=== PATIENT | male | born 1970 | race Hispanic/Latino ===

== ENCOUNTER 2016-10-12 10:48 | Emergency (ER) | payer OTHER, SELFPAY ==
[2016-10-12 11:28] LABS: #Eosinphils 0.1 thou/uL (0.0-0.7); #Monocytes 0.4 thou/uL (0.11-0.59); #Neutrophils 3.2 thou/uL (1.40-6.50); %Basophils 0.7 % (0.0-1.0); %Eosinophils 1.9 % (0.0-10.0); %Monocytes 6.7 % (0.0-10.0); Hematocrit 48.8 % (42.0-52.0); Mean Platelet Volume 6.1 fL (7.4-10.4); Red Blood Cell (RBC) Count 5.67 mill/uL (4.70-6.10); White Blood Cell (WBC) Count 5.7 thou/uL (4.8-10.8)
[2016-10-12 11:30] LABS: PTT 28.2 SEC (22.9-36.1)
[2016-10-12 11:31] LABS: Prothrombin Time 14.7 SEC (12.0-14.7)
[2016-10-12] MEDS ORDERED: Metoprolol Tartrate 5 MG/5 ML VIAL ONE (11:31)
[2016-10-12 11:37] LABS: ALT (SGPT) 49 U/L (0-55); AST (SGOT) 28 U/L (5-34); Alkaline Phosphatase 44 U/L (40-150); Anion Gap 14 mmol/L (10-20); BUN (Urea Nitrogen) 14 mg/dL (8.9-20.6); Bilirubin, Total 1.1 mg/dL (0.2-1.2); Calc. Creatinine Clearance 0 mL/min (70-130); Calcium 9.3 mg/dL (7.8-10.44); Carbon Dioxide 22 mmol/L (22-29); Chloride 108 mmol/L (98-107); Estimated GFR-MDRD Greater than 90; Globulin 3.2 g/dL (2.4-3.5); Lipase 25 U/L (8-78); Protein, Total 7.6 g/dL (6.0-8.3)
[2016-10-12 11:38] LABS: Troponin I 0.015 ng/mL (< 0.028)
--- NOTE | 2016-10-12 12:22 | ERRECORD ---
[facility] EMERGENCY RECORD HPI CHEST PAIN (11:17 DHAM) CHIEF COMPLAINT: Patient presents for evaluation of chest pain, that was present but has now resolved. HISTORIAN: History provided by patient, History provided by patient's spouse, . LOCATION: Symptoms are localized, most severe in substernal area. QUALITY: Pain is dull in nature, described as burning. SEVERITY: Current severity of pain rated as 0/10. TIME COURSE: Gradual onset of symptoms, for the last one year off and on. worse the last 2 weeks., Symptoms have resolved, are intermittent. ASSOCIATED WITH: No associated chills, No associated cough, No associated diaphoresis, No associated fever, No associated nausea, No associated palpitations, No associated shortness of breath, No associated trauma, No associated upper respiratory infection, No associated vomiting, saw pcp yesterday for "worse indigestion" and was noted to have elevated bp with diastolic around 100. He was switched from his intermittent Prilosec to daily protonix and told to monitor his bp and recheck next month. He had a couple of episodes this morning and has seemed to hurt worse to push on the parasternal area so he came in for a check. also notes increased eructation last few weeks. EXACERBATED BY: Patient's condition exacerbated by palpation of chest, Patient's condition exacerbated by worse to eat, lay supine or drink soda. RELIEVED BY: Patient's condition relieved by upright position. RISK FACTORS: Coronary artery disease risk factors, include hypertension, Thoracic aortic dissection risk factors, include hypertension, Pulmonary embolism risk factors, include morbid obesity. HEART SCORE: Patients history is Slightly Suspicious (0), Patients ECG is normal (0), Patients age is greater than 45 and less than 65 (1), Patient has 1 or 2 risk factors (1), Patients Troponin is equal to or less than 1 times the normal limit (0), Total 2. WELLS CRITERIA FOR PE: No clinical signs and symptoms of a DVT (0), Patient does not have, or is likely to not have, a primary diagnosis of PE (0), Patient's heart rate is less than 100 (0), Patient has no history of immobilization within 3 days, nor any surgical history within the past 4 weeks (0), Patient has not had an objectively diagnosed PE or DVT previously (0), Patient does not have hemoptysis (0), Patient has not had treatment for malignancy within the last 6 months, nor palliative (0), Total 0. ROS CONSTITUTIONAL: Negative constitutional review of systems, Historian denies chills, denies fatigue, denies fever. (11:24 DHAM) EYES: Negative eye review of systems, Historian denies eye pain, denies eye redness. (11:24 DHAM) &a-1R&a+25V*p+0X*[id number]*c152B*c15G*c2P*p-0X&a-25V&a+1RName: Rakesh Balderas : M46 MedRec: [id number] AcctNum: [id number] Prepared: Kirit Oct 12, 2016 22:57 by Interface Page [address] [facility] EMERGENCY RECORD ENT: Negative ears, nose, throat review of systems. (11:24 DHAM) CARDIOVASCULAR: Historian reports chest pain, pleuritic, substernal, Historian denies diaphoresis, denies dyspnea on exertion, denies edema, denies exercise intolerance, denies syncope, denies palpitations. (11:24 DHAM) RESPIRATORY: Historian denies cough, denies shortness of breath, denies sputum. (11:24 DHAM) GI: Historian denies abdominal pain, denies diarrhea, denies nausea, denies vomiting. (11:24 DHAM) GENITOURINARY MALE: Historian denies dysuria, denies urinary frequency, denies urinary urgency. (11:24 DHAM) MUSCULOSKELETAL: Historian denies arthralgias, denies myalgias, denies neck pain. (11:24 DHAM) SKIN: Historian denies cellulitis, denies rash, denies skin lesions. (11:24 DHAM) NEUROLOGIC: Historian denies confusion, denies headache, denies paresthesias. (11:24 DHAM) HEMO/LYMPHATIC: Historian denies abnormal blood clotting, denies easy bruising. (11:25 DHAM) ALLERGIC/IMMUNOLOGIC: Historian denies frequent infections, denies hives. (11:25 DHAM) PSYCHIATRIC: Historian denies anxiety, denies depression. (11:24 DHAM) NOTES: All systems reviewed, negative except as described above. (11:24 DHAM) PAST MEDICAL HISTORY (11:06 RHIC) MEDICAL HISTORY: Flu vaccine not up to date, Tetanus immunization up to date, Past medical history includes gastrointestinal disease, gastroesophageal reflux disease. MALE SURGICAL HISTORY: Patient has no surgical history. PSYCHIATRIC HISTORY: No previous psychiatric history. SOCIAL HISTORY: Patient denies alcohol use, Patient denies drug use, Patient has no smoking history. KNOWN ALLERGIES No Known Allergies No Known Drug Allergy (Unconfirmed) CURRENT MEDICATIONS No recorded medications VITAL SIGNS VITAL SIGNS: BP: 143/104, Pulse: 70, Resp: 18, Pain: 0, O2 sat: 100, Time: 10/12/2016 11:05. (11:05 RHIC) BP: 126/89, Pulse: 93, Resp: 18, Pain: 0, O2 sat: 97 on Room Air, Time: 10/12/2016 11:34. (11:34 AHOO) Temp: 98.2 (Oral), Time: 10/12/2016 11:15. (11:15 AHOO) &a-1R&a+25V*p+0X*[id number]*c152B*c15G*c2P*p-0X&a-25V&a+1RName: Rakesh Balderas : M46 MedRec: [id number] AcctNum: [id number] Prepared: Sat Oct 12, 2016 22:57 by Interface Page [address] [facility] EMERGENCY RECORD PHYSICAL EXAM (11:39 DHAM) CONSTITUTIONAL: Vital signs reviewed, Patient afebrile, Pulse normal, Blood pressure elevated initially but quickly came down to almost normal., Respiratory rate normal, Patient appears non toxic, Patient appears pain free, Patient alert and oriented to person, place and time. HEAD: Head exam normal, Head exam included findings of head atraumatic. EYES: Eye exam included findings of eyelids normal to inspection, Pupils equally round and reactive to light, Extraocular muscles intact, Conjunctiva normal. ENT: Ear exam normal, external ear normal, tympanic membranes normal, no drainage, Nose exam normal, no nasal deformity, no nasal congestion or rhinorrhea, Pharynx exam normal, Uvula exam normal, Tonsil exam normal, teeth normal. NECK: Neck exam normal, Neck exam included findings of normal range of motion, Thyroid normal, no jugular venous distention, no cervical adenopathy. RESPIRATORY CHEST: Breath sounds clear, No wheezing, No rales, No rhonchi. mild parasternal tenderness to palpation left lower and right upper. chest wall does seem to recreate tenderness. CARDIOVASCULAR: Cardiovascular exam included findings of heart rate regular rate and rhythm, Heart sounds normal, Point of maximal impulse normal. ABDOMEN MALE: Abdominal exam included findings of abdomen nontender, Bowel sounds normal, Liver normal, Spleen normal, no distension, no mass, no peritoneal signs. UPPER EXTREMITY: Upper extremity exam normal, Radial pulse normal. LOWER EXTREMITY: Lower extremity exam normal, Lower extremity exam included findings of inspection normal, Range of motion normal. NEURO: Ava coma scale 15, Neuro exam findings include patient oriented to person, place and time, Speech normal, Gait normal, Cranial nerves intact. SKIN: Skin exam included findings of skin warm, dry, and normal in color, no rash. PSYCHIATRIC: Psychiatric exam included findings of patient oriented to person place and time, Normal affect, Judgment normal, Insight normal. EKG INTERPRETATION (11:04 DHAM) 12 LEAD EKG INTERPRETATION: 12 lead EKG interpreted by Emergency Department Physician at time of study, 12 lead EKG shows normal sinus rhythm, Rate (beats per minute): 69, with no ectopics, No previous EKG available for comparison, Conduction normal, ST segments normal, T waves normal, [place] normal, Clinical impression: Normal EKG. RADIOLOGYINTERPRETATION (11:49 DHAM) CHEST: Chest films negative, no infiltrates, no pneumothorax, no hemothorax, no masses, no cardiomegaly, no congestive heart failure, &a-1R&a+25V*p+0X*[id number]*c152B*c15G*c2P*p-0X&a-25V&a+1RName: Rakesh Balderas : M46 MedRec: [id number] AcctNum: [id number] Prepared: Kirit Oct 12, 2016 22:57 by Interface Page [address] [facility] EMERGENCY RECORD no effusion, no free air, mild cephalization noted but underpenetrated due to habitus. MEDICATION ADMINISTRATION SUMMARY Drug Name: Adult Low Dose Aspirin, Dose Ordered: 4 tab(s), Route: Oral, Status: Given, Time: 11:34 10/12/2016, Detailed record available in Medication Service section. DOCTOR NOTES (11:50 DHAM) TEXT: The pt's symptoms sound typical for reflux but also has a hint of reproducibility with pressure so may have a hint of costochondritis as well. Given his We will start a low dose of ziac and have him see his pcp mohsen to consider further cardiac risk stratification. see dci. PROBLEM LIST No recorded problems DIAGNOSIS (11:53 DHAM) FINAL: PRIMARY: GERD WITHOUT ESOPHAGITIS, ADDITIONAL: elevated blood pressure. [facility]01 [facility] Ziac: TABLET : 2.5 mg-6.25 mg : ORAL : Quantity: 1 Unit: tab(s) Route: ORAL Schedule: once a day (in the morning) Dispense: 30 Unit: tab(s) May substitute. Refills: No Refills . NOTES: No refills. DISPOSITION PATIENT: Disposition Type: Discharge, Disposition: *Discharge Home. (11:53 [facility] Patient left the department. (12:15 [facility]) [place]: [facility]=ISAEL Nowak, December [facility]=MD Vadim, Ovidio IC=Liz RN, Flory &a-1R&a+25V*p+0X*[id number]*c152B*c15G*c2P*p-0X&a-25V&a+1RName: Rakesh Balderas : M46 MedRec: [id number] AcctNum: [id number] Prepared: Kirit Oct 12, 2016 22:57 by Interface Page 4 of 4 pMD MTDD
--- NOTE | 2016-10-12 12:28 | PICIS ---
[facility] EMERGENCY RECORD TRIAGE (10:58 RHIC) TRIAGE NOTES: INTERMITTEN CP AND BURNING FOR 2-3 WEEKS. ELEVATED BP. SEEN PHYSICIAN YESTERDAY. (10:58 RHIC) PATIENT: NAME: Rakesh Balderas, AGE: 46, GENDER: male, : Sat 1970, TIME OF GREET: Sat Oct 12, 2016 10:48, PREFERRED LANGUAGE: Sami, ETHNICITY: Not or , ECODE BILLING MAP: [facility], SSN: [id number], Zip Code: [address], KG WEIGHT: 115.21, PHONE: , , , PERSON ID: [id number], PAYMENT: S[employer] Self Pay, PCP: MD Barry Kyle. (10:58 RHIC) COMPLAINT: CHEST PRESSURE. (10:58 RHIC) ADMISSION: URGENCY: 2 Emergent, ADMISSION SOURCE: Home, TRANSPORT: CAR, BED: ER -02. (10:58 RHIC) IMMUNIZATIONS: Flu vaccine not up to date, Tetanus immunization up to date. (11:06 RHIC) SIRS SCORING: Heart Rate 55-109 (0), Temp range 96.8-101.1 (0), respiratory rate 12-24 (0), Mental Status altered: no (0). (11:06 RHIC) TRIAGE SCREENING: Patient denies suicidal ideation, Patient denies presence of domestic violence. (11:06 RHIC) TREATMENTS IN PROGRESS: Treatments given Prehospital: NONE. (11:06 RHIC) PROVIDERS: TRIAGE NURSE: Flory Hill RN. (10:58 RHIC) VITAL SIGNS: BP 143/104, Pulse 70, Resp 18, Pain 0, O2 Sat 100, Time 10/12/2016 11:05. (11:05 RHIC) PREVIOUS VISIT ALLERGIES: No Known Allergies. (10:58 RHIC) No Known Allergies. (11:06 RHIC) KNOWN ALLERGIES No Known Allergies No Known Drug Allergy (Unconfirmed) CURRENT MEDICATIONS No recorded medications VITAL SIGNS VITAL SIGNS: BP: 143/104, Pulse: 70, Resp: 18, Pain: 0, O2 sat: 100, Time: 10/12/2016 11:05. (11:05 RHIC) BP: 126/89, Pulse: 93, Resp: 18, Pain: 0, O2 sat: 97 on Room Air, Time: 10/12/2016 11:34. (11:34 AHOO) Temp: 98.2 (Oral), Time: 10/12/2016 11:15. (11:15 AHOO) NURSING ASSESSMENT: CARDIOVASCULAR (11:00 RHIC) CONSTITUTIONAL: Patient arrives ambulatory, Gait steady, History obtained from patient, Patient appears comfortable, Patient cooperative, Patient alert, Oriented to person, place and time, Skin warm, Skin dry, Skin normal in color, Mucous membranes pink, Mucous membranes moist, Patient is well-groomed. PAIN: No sudden onset of pain, burning pain, midsternal, Patient rates pain as 0 out of 10, Pain resolved spontaneously. &a-1R&a+25V*p+0X*q8005V*c152B*c15G*c2P*p-0X&a-25V&a+1RName: Rakesh Balderas : M46 MedRec: [id number] AcctNum: [id number] Prepared: Sat Oct 12, 2016 23:03 by Interface Page 1 of 10 pMD [facility] EMERGENCY RECORD CARDIOVASCULAR: Cardiovascular assessment findings include heart rate normal, Heart rhythm normal sinus, No associated diaphoresis, no associated dyspnea, no associated dizziness, no associated syncopal episode, no associated weakness. RESPIRATORY/CHEST: Breath sounds clear, Respiratory assessment findings include respiratory effort easy. NURSING PROCEDURE: DISCHARGE NOTE (12:01 AHOO) DISCHARGE: Patient discharged to home, ambulating without assistance, family driving, accompanied by //partner, Summary of Care printed/ provided, Transition record given to patient, Discharge instructions given to patient, Prescriptions given and instructions on side effects given, Above person(s) verbalized understanding of discharge instructions and follow-up care, Patient treated and evaluated by physician, Notes: DC'D BY GIOVANNI HILL RN. NURSING PROCEDURE: IV PATIENT IDENITIFIER: Patient actively involved in identification process, Patient's identity verified by patient stating name, Patient's identity verified by patient stating date, Patient's identity verified by hospital ID bracelet, Patient's identity verified by family member. (11:07 AHOO) IV SITE 1: IV established, to the left antecubital, using a 20 gauge catheter, in one attempt, Saline lock established, Flushed with normal saline (mls): 10ml, Labs drawn at time of placement, labeled in the presence of the patient and sent to lab. (11:07 OO) FOLLOW-UP SITE 1: After procedure, 2x2 dressing applied, After procedure, no drainage at IV site, After procedure, no swelling at IV site, After procedure, no redness at IV site, IV discontinued, due to patient being discharged, catheter intact, Notes: DC'D BY GIOVANNI HILL RN. (11:59 OO) ORDER DETAILS Order Name: GERMINATION TESTING MANAGER ED, Status: Done, Time: 11:07 10/12/2016, User: KEVIN, - Ordered for: MD Fierro Darren, - Entered by: MD Fierro Darren - Sat Oct 12, 2016 11:03, - Quantity: 1, Order Name: Cardiac Profile w/CKMB & Troponin - I, Status: Active, Time: 11:03 10/12/2016, User: JOCELYNN, - Ordered for: MD Fierro Darren, - Entered by: MD Fierro Darren - Sat Oct 12, 2016 11:03, - Quantity: 1, Order Name: CBC with Differential, Status: Active, Time: 11:03 10/12/2016, User: JOCELYNN, - Ordered for: MD Fierro Darren, - Entered by: MD Fierro Darren - Sat Oct 12, 2016 11:03, - Quantity: 1, Order Name: Comprehensive Metabolic Panel, Status: Active, Time: &a-1R&a+25V*p+0X*q8340W*c152B*c15G*c2P*p-0X&a-25V&a+1RName: Rakesh Balderas : M46 MedRec: [id number] AcctNum: [id number] Prepared: Sat Oct 12, 2016 23:03 by Interface Page 2 of 10 pMD [facility] EMERGENCY RECORD 11:03 10/12/2016, User: JOCELYNN, - Ordered for: MD Fierro Darren, - Entered by: MD Fierro Darren - Sat Oct 12, 2016 11:03, - Quantity: 1, Order Name: D-Dimer (Quantitative), Status: Active, Time: 11:03 10/12/2016, User: JOCELYNN, - Ordered for: MD Fierro Darren, - Entered by: MD Fierro Darren - Sat Oct 12, 2016 11:03, - Quantity: 1, Order Name: EKG 12 Lead in Emergency Room, Status: Active, Time: 11:03 10/12/2016, User: JOCELYNN, - Ordered for: MD Fierro Darren, - Entered by: MD Fierro Darren - Sat Oct 12, 2016 11:03, - Quantity: 1, Order Name: ERRT Pulse Oximeter ER, Status: Active, Time: 11:03 10/12/2016, User: JOCELYNN, - Ordered for: MD Fierro Darren, - Entered by: MD Fierro Darren - Sat Oct 12, 2016 11:03, - Quantity: 1, Order Name: Lipase, Status: Active, Time: 11:03 10/12/2016, User: JOCELYNN, - Ordered for: MD Fierro Darren, - Entered by: MD Fierro Darren - Sat Oct 12, 2016 11:03, - Quantity: 1, Order Name: Protime with INR, Status: Active, Time: 11:03 10/12/2016, User: JOCELYNN, - Ordered for: MD Fierro Darren, - Entered by: MD Fierro Darren - Sat Oct 12, 2016 11:03, - Quantity: 1, Order Name: PTT, Status: Active, Time: 11:03 10/12/2016, User: JOCELYNN, - Ordered for: MD Fierro Darren, - Entered by: MD Fierro Darren - Sat Oct 12, 2016 11:03, - Quantity: 1, Order Name: SALINE LOCK, Status: Done, Time: 11:07 10/12/2016, User: KEVIN, - Ordered for: MD Fierro Darren, - Entered by: MD Fierro Darren - Sat Oct 12, 2016 11:03, - Quantity: 1, Order Name: XR Chest 1 View Portable, Status: Active, Time: 11:03 10/12/2016, User: JOCELYNN, - Ordered for: MD Fierro Darren, - Entered by: MD Fierro Darren - Kirit Oct 12, 2016 11:03, - Quantity: 1. MEDICATION ADMINISTRATION SUMMARY Drug Name: Adult Low Dose Aspirin, Dose Ordered: 4 tab(s), Route: Oral, Status: Given, Time: 11:34 10/12/2016, Detailed record available in Medication Service section. MEDICATION SERVICE (11:34 DHAM) &a-1R&a+25V*p+0X*o8695Z*c152B*c15G*c2P*p-0X&a-25V&a+1RName: Rakesh Balderas : M46 MedRec: [id number] AcctNum: [id number] Prepared: Sat Oct 12, 2016 23:03 by Interface Page 3 of 10 pMD [facility] EMERGENCY RECORD Adult Low Dose Aspirin: Order: Adult Low Dose Aspirin (aspirin) - Dose: 4 tab(s) : Oral Schedule: Now Ordered by: Ovidio Fierro MD Entered by: Ovidio Fierro MD Sat Oct 12, 2016 11:30 , Acknowledged by: Ernestina Nowak LVN Sat Oct 12, 2016 11:31 Documented as given by: ISAEL Caballero Oct 12, 2016 11:34 Patient, Medication, Dose, Route and Time verified prior to administration. Amount given: 4 TABS, Correct patient, time, route, dose and medication confirmed prior to administration, Patient advised of actions and side-effects prior to administration, Allergies confirmed and medications reviewed prior to administration, Patient in position of comfort, Side rails up, Cart in lowest position, Family at bedside. HPI CHEST PAIN (11:17 DHAM) CHIEF COMPLAINT: Patient presents for evaluation of chest pain, that was present but has now resolved. HISTORIAN: History provided by patient, History provided by patient's spouse, . LOCATION: Symptoms are localized, most severe in substernal area. QUALITY: Pain is dull in nature, described as burning. SEVERITY: Current severity of pain rated as 0/10. TIME COURSE: Gradual onset of symptoms, for the last one year off and on. worse the last 2 weeks., Symptoms have resolved, are intermittent. ASSOCIATED WITH: No associated chills, No associated cough, No associated diaphoresis, No associated fever, No associated nausea, No associated palpitations, No associated shortness of breath, No associated trauma, No associated upper respiratory infection, No associated vomiting, saw pcp yesterday for "worse indigestion" and was noted to have elevated bp with diastolic around 100. He was switched from his intermittent Prilosec to daily protonix and told to monitor his bp and recheck next month. He had a couple of episodes this morning and has seemed to hurt worse to push on the parasternal area so he came in for a check. also notes increased eructation last few weeks. EXACERBATED BY: Patient's condition exacerbated by palpation of chest, Patient's condition exacerbated by worse to eat, lay supine or drink soda. RELIEVED BY: Patient's condition relieved by upright position. RISK FACTORS: Coronary artery disease risk factors, include hypertension, Thoracic aortic dissection risk factors, include hypertension, Pulmonary embolism risk factors, include morbid obesity. HEART SCORE: Patients history is Slightly Suspicious (0), Patients ECG is normal (0), Patients age is greater than 45 and less than 65 (1), Patient has 1 or 2 risk &a-1R&a+25V*p+0X*m9786S*c152B*c15G*c2P*p-0X&a-25V&a+1RName: Rakesh Balderas : M46 MedRec: [id number] AcctN: [id number] Prepared: Kirit Oct 12, 2016 23:03 by Interface Page 4 of 10 pMD [facility] EMERGENCY RECORD factors (1), Patients Troponin is equal to or less than 1 times the normal limit (0), Total 2. WELLS CRITERIA FOR PE: No clinical signs and symptoms of a DVT (0), Patient does not have, or is likely to not have, a primary diagnosis of PE (0), Patient's heart rate is less than 100 (0), Patient has no history of immobilization within 3 days, nor any surgical history within the past 4 weeks (0), Patient has not had an objectively diagnosed PE or DVT previously (0), Patient does not have hemoptysis (0), Patient has not had treatment for malignancy within the last 6 months, nor palliative (0), Total 0. ROS CONSTITUTIONAL: Negative constitutional review of systems, Historian denies chills, denies fatigue, denies fever. (11:24 DHAM) EYES: Negative eye review of systems, Historian denies eye pain, denies eye redness. (11:24 DHAM) ENT: Negative ears, nose, throat review of systems. (11:24 DHAM) CARDIOVASCULAR: Historian reports chest pain, pleuritic, substernal, Historian denies diaphoresis, denies dyspnea on exertion, denies edema, denies exercise intolerance, denies syncope, denies palpitations. (11:24 DHAM) RESPIRATORY: Historian denies cough, denies shortness of breath, denies sputum. (11:24 DHAM) GI: Historian denies abdominal pain, denies diarrhea, denies nausea, denies vomiting. (11:24 DHAM) GENITOURINARY MALE: Historian denies dysuria, denies urinary frequency, denies urinary urgency. (11:24 DHAM) MUSCULOSKELETAL: Historian denies arthralgias, denies myalgias, denies neck pain. (11:24 DHAM) SKIN: Historian denies cellulitis, denies rash, denies skin lesions. (11:24 DHAM) NEUROLOGIC: Historian denies confusion, denies headache, denies paresthesias. (11:24 DHAM) HEMO/LYMPHATIC: Historian denies abnormal blood clotting, denies easy bruising. (11:25 DHAM) ALLERGIC/IMMUNOLOGIC: Historian denies frequent infections, denies hives. (11:25 DHAM) PSYCHIATRIC: Historian denies anxiety, denies depression. (11:24 DHAM) NOTES: All systems reviewed, negative except as described above. (11:24 DHAM) PAST MEDICAL HISTORY (11:06 RHIC) MEDICAL HISTORY: Flu vaccine not up to date, Tetanus immunization up to date, Past medical history includes gastrointestinal disease, gastroesophageal reflux disease. MALE SURGICAL HISTORY: Patient has no surgical history. PSYCHIATRIC HISTORY: No previous psychiatric history. SOCIAL HISTORY: Patient denies alcohol use, Patient denies drug &a-1R&a+25V*p+0X*s8520O*c152B*c15G*c2P*p-0X&a-25V&a+1RName: Rakesh Balderas : M46 MedRec: [id number] AcctNum: [id number] Prepared: Sat Oct 12, 2016 23:03 by Interface Page 5 of 10 pMD [facility] EMERGENCY RECORD use, Patient has no smoking history. PHYSICAL EXAM (11:39 DHAM) CONSTITUTIONAL: Vital signs reviewed, Patient afebrile, Pulse normal, Blood pressure elevated initially but quickly came down to almost normal., Respiratory rate normal, Patient appears non toxic, Patient appears pain free, Patient alert and oriented to person, place and time. HEAD: Head exam normal, Head exam included findings of head atraumatic. EYES: Eye exam included findings of eyelids normal to inspection, Pupils equally round and reactive to light, Extraocular muscles intact, Conjunctiva normal. ENT: Ear exam normal, external ear normal, tympanic membranes normal, no drainage, Nose exam normal, no nasal deformity, no nasal congestion or rhinorrhea, Pharynx exam normal, Uvula exam normal, Tonsil exam normal, teeth normal. NECK: Neck exam normal, Neck exam included findings of normal range of motion, Thyroid normal, no jugular venous distention, no cervical adenopathy. RESPIRATORY CHEST: Breath sounds clear, No wheezing, No rales, No rhonchi. mild parasternal tenderness to palpation left lower and right upper. chest wall does seem to recreate tenderness. CARDIOVASCULAR: Cardiovascular exam included findings of heart rate regular rate and rhythm, Heart sounds normal, Point of maximal impulse normal. ABDOMEN MALE: Abdominal exam included findings of abdomen nontender, Bowel sounds normal, Liver normal, Spleen normal, no distension, no mass, no peritoneal signs. UPPER EXTREMITY: Upper extremity exam normal, Radial pulse normal. LOWER EXTREMITY: Lower extremity exam normal, Lower extremity exam included findings of inspection normal, Range of motion normal. NEURO: [place] coma scale 15, Neuro exam findings include patient oriented to person, place and time, Speech normal, Gait normal, Cranial nerves intact. SKIN: Skin exam included findings of skin warm, dry, and normal in color, no rash. PSYCHIATRIC: Psychiatric exam included findings of patient oriented to person place and time, Normal affect, Judgment normal, Insight normal. EVENTS TRANSFER: Triage to Emergency Emergency Room -02. (Sat Oct 12, 2016 10:58 RHIC) Removed from Emergency Emergency Room -02. (12:15 RHIC) RADIOLOGYINTERPRETATION (11:49 DHAM) CHEST: Chest films negative, no infiltrates, no pneumothorax, no hemothorax, no masses, no cardiomegaly, no congestive heart failure, &a-1R&a+25V*p+0X*e6376P*c152B*c15G*c2P*p-0X&a-25V&a+1RName: Rakesh Balderas : M46 MedRec: [id number] AcctNum: [id number] Prepared: Sat Oct 12, 2016 23:03 by Interface Page 6 of 10 pMD [facility] EMERGENCY RECORD no effusion, no free air, mild cephalization noted but underpenetrated due to habitus. EKG INTERPRETATION (11:04 DHAM) 12 LEAD EKG INTERPRETATION: 12 lead EKG interpreted by Emergency Department Physician at time of study, 12 lead EKG shows normal sinus rhythm, Rate (beats per minute): 69, with no ectopics, No previous EKG available for comparison, Conduction normal, ST segments normal, T waves normal, [place] normal, Clinical impression: Normal EKG. O2SAT INTERPRETATION (11:41 DHAM) O2SAT: Single pulse oximetry, Oxygen saturation 97%, on room air, Oxygen saturation interpretation: Normal, No intervention required. DOCTOR NOTES (11:50 DHAM) TEXT: The pt's symptoms sound typical for reflux but also has a hint of reproducibility with pressure so may have a hint of costochondritis as well. Given his We will start a low dose of ziac and have him see his pcp mohsen to consider further cardiac risk stratification. see dci. PROBLEM LIST No recorded problems DIAGNOSIS (11:53 DHAM) FINAL: PRIMARY: GERD WITHOUT ESOPHAGITIS, ADDITIONAL: elevated blood pressure. DISPOSITION PATIENT: Disposition Type: Discharge, Disposition: *Discharge Home. (11:53 DHAM) Patient left the department. (12:15 RH) INSTRUCTION (11:56 DHAM) DISCHARGE: GERD ADULT, HYPERTENSION, TO BE CONFIRMED. FOLLOWUP: [facility] Jhonny, [facility] [address] [place] [id number], . SPECIAL: Start Ziac 2.5/6.25 one daily for blood pressure. Continue Protonix one twice a day for 7 days 30-60 minutes prior to largest meal of the day. Then back to once a day. See your pcp early next week to consider further cardiac evaluation or return for any increased chest pain or other concerns. PRESCRIPTION (12:01 [facility]) Ziac: TABLET : 2.5 mg-6.25 mg : ORAL : Quantity: 1 Unit: tab(s) Route: ORAL Schedule: once a day (in the morning) Dispense: 30 Unit: tab(s) May substitute. Refills: No Refills . NOTES: No refills. IMAGING &a-1R&a+25V*p+0X*b3676O*c152B*c15G*c2P*p-0X&a-25V&a+1RName: Rakesh Balderas : M46 MedRec: [id number] AcctNum: [id number] Prepared: [facility] Oct 12, 2016 23:03 by Interface Page 7 of 10 pMD [facility] EMERGENCY RECORD *EKG: Image captured from scanner. (12:00 [facility]) *SUPPLY CHARGE SHEET: Image captured from scanner. (12:01 [facility]) *DISCHARGE INSTRUCTIONS RECEIPT: Image captured from scanner. (12:03 [facility]) ADMIN (22:51 [facility]) DIGITAL SIGNATURE: MD Fierro Darren. RESULTS (11:47 [facility]) LABORATORY: Cardiac Profile w/CKMB & TropI Collection DT: [facility] Oct 12, 2016 11:28, CKMB 1.1 ng/mL, Range (0-6.6), Troponin I 0.015 ng/mL, Range (< 0.028), Reference Range , 0.00 - 0.028 ng/mL Negative 0.029 - 0.29 ng/mL , Indeterminate Greater or Equal to 0.3 ng/mL Strongly suggests [place] , . Lipase Collection DT: [facility] Oct 12, 2016 11:28, Lipase 25 U/L, Range (8-78). Comprehensive Metabolic Panel Collection DT: [facility] Oct 12, 2016 11:28, Sodium 140 mmol/L, Range (136-145), Potassium 3.9 mmol/L, Range (3.5-5.1), *Chloride 108 - H mmol/L, Range (98-107), Carbon Dioxide 22 mmol/L, Range (22-29), Anion Gap 14 mmol/L, Range (10-20), BUN (Urea Nitrogen) 14 mg/dL, Range (8.9-20.6), Creatinine 0.79 mg/dL, Range (0.7-1.3), Estimated GFR-MDRD Greater than 90 , Reference Range for Estimated GFR: Greater than 90, mL/min/1.73 m2 NOTE: The MDRD equation has not been validated for use, with the elderly (over 70 years of age), women, patients with, serious comorbid condition or persons with extremes of body size, muscle, mass, or nutritional status. , *Glucose 108 - H mg/dL, Range (70-105), Calcium 9.3 mg/dL, Range (7.8-10.44), Bilirubin, Total 1.1 mg/dL, Range (0.2-1.2), Protein, Total 7.6 g/dL, Range (6.0-8.3), NOTE: Plasma values are generally 0.3 to 0.5 g/dL higher than serum values, due to the presence of fibrinogen. , Albumin 4.4 g/dL, Range (3.5-5.0), Globulin 3.2 g/dL, Range (2.4-3.5), Alb/Glob Ratio 1.4 g/dL, Range (1.2-2.2), Alkaline Phosphatase 44 U/L, Range (40-150), AST (SGOT) 28 U/L, Range (5-34), ALT (SGPT) 49 U/L, Range (0-55). D-Dimer (Quantitative) Collection DT: Sat Oct 12, 2016 11:28, &a-1R&a+25V*p+0X*r2852Y*c152B*c15G*c2P*p-0X&a-25V&a+1RName: Rakesh Balderas : M46 MedRec: [id number] AcctNum: [id number] Prepared: Sat Oct 12, 2016 23:03 by Interface Page 8 of 10 pMD [facility] EMERGENCY RECORD See comment below , Anticoagulant? NONE Medical Necessity SUSPECT COAGULOPATHY , *D-Dimer Test Less than 0.27 - L *mcg/mL, Range (0.27-0.43), * Reference Range Units: mcg/mL of fibrinogen equivalent, units(FEU) Based upon a retrospective study of [facility] patients in January 2006, a result of Less than 0.44 mcg/mL FEU is, predictive of the absence of a DVT or PE. . PTT Collection DT: [facility] Oct 12, 2016 11:28, See comment below , Anticoagulant? NONE Medical Necessity SUSPECT COAGULOPATHY , PTT 28.2 SEC, Range (22.9-36.1). Protime with INR Collection DT: [facility] Oct 12, 2016 11:28, See comment below , Anticoagulant? NONE Medical Necessity SUSPECT COAGULOPATHY , Prothrombin Time 14.7 SEC, Range (12.0-14.7), INR-International Normal Ratio 1.1 , ATTENTION: READ CAREFULLY , The, recommended therapeutic ranges for oral anticoagulant treatments are: , , Low Intensity: 1.5 - 2.0 Moderate Intensity: 2.0, - 3.0 High Intensity (1): 2.5 - 3.5 High, Intensity (2): 3.0 - 4.0 CRITICAL: >, 4.0 . CBC with Differential Collection DT: [facility] Oct 12, 2016 11:28, White Blood Cell (WBC) Count 5.7 thou/uL, Range (4.8-10.8), Red Blood Cell (RBC) Count 5.67 mill/uL, Range (4.70-6.10), Hemoglobin 16.7 g/dL, Range (14.0-18.0), Hematocrit 48.8 %, Range (42.0-52.0), Mean Corpuscular Volume 86.2 fl, Range (80.0-94.0), Mean Corpuscular Hemoglobin 29.5 pg, Range (27.0-31.0), Mean Corpuscular HGB CONC 34.2 g/dL, Range (32.0-36.0), *RBC Distribution Width 11.3 - L %, Range (11.5-14.5), Platelet Count 170 thou/uL, Range (130-400), *Mean Platelet Volume 6.1 - L fL, Range (7.4-10.4), %Neutrophils 55.5 %, Range (42.0-75.0), %Lymphocytes 35.1 %, Range (21.0-51.0), %Monocytes 6.7 %, Range (0.0-10.0), %Eosinophils 1.9 %, Range (0.0-10.0), %Basophils 0.7 %, Range (0.0-1.0), #Neutrophils 3.2 thou/uL, Range (1.40-6.50), &a-1R&a+25V*p+0X*v2875Z*c152B*c15G*c2P*p-0X&a-25V&a+1RName: Rakesh Balderas : 6 MedRec: [id number] AcctNum: [id number] Prepared: Sat Oct 12, 2016 23:03 by Interface Page 9 of 10 pMD [facility] EMERGENCY RECORD #Lymphocytes 2.0 thou/uL, Range (1.20-3.40), #Monocytes 0.4 thou/uL, Range (0.11-0.59), #Eosinphils 0.1 thou/uL, Range (0.0-0.7), #Basophils 0.0 thou/uL, Range (0.0-0.2). Chapa: MARKUS=ISAEL Nowak, December JOCELYNN=MD Vadim, Ovidio BROWN=MJ Hill, Flory &a-1R&a+25V*p+0X*v1924M*c152B*c15G*c2P*p-0X&a-25V&a+1RName: Rakesh Balderas : M46 MedRec: [id number] AcctNum: [id number] Prepared: Kirit Oct 12, 2016 23:03 by Interface Page 10 of 10 pMD MTDD
--- NOTE | 2016-10-12 16:57 | RAD ---
PORTABLE CHEST 10/12/16 An AP portable film at 1112 is presented with no prior films available for comparison. The heart is normal in size. The lungs are clear. No infiltrate or effusion was seen. There is no va scular congestion. The trachea is midline. IMPRESSION: No acute thoracic findings. POS: HOME
== END 2016-10-12 11:56 | disposition home or self-care (01) ==
LOC: BURERS 10:48
DX: K21.9 Gastro-esophageal reflux disease without esophagitis (principal); I10 Essential (primary) hypertension
CPT/HCPCS: 71010; 80053; 82553; 83690; 84484; 85025; 85379; 85610; 85730; 93005; 94760

== ENCOUNTER 2017-04-23 08:25 | Outpatient (CLI) | payer OTHER ==
--- NOTE | 2017-04-23 16:54 | ULT ---
RIGHT UPPER QUADRANT ULTRASOUND 04/23/17 This patient images very poorly by ultrasound, so most structures are not seen exceptionally well. C omparison was made with the prior scan of 11/07/11 which also had difficulties seeing well in this pat ient. The liver is seen very poorly but measures 16.2 cm in oblique sagittal length. This was comparable t o the size before. It seems echo dense which would fit with fatty infiltration. There is portal veno us flow towards the liver which is normal. No space occupying lesions were seen within the limitatio ns of the study. The gallbladder was seen poorly. No stones or wall thickening were present. I canno t tell if there is a little bit of sludge in it or artifactual echoes. The common bile duct is borde rline in size at 6 mm (3 mm previously). This may or may not be significant. The pancreas was seen q uite poorly and cannot be commented upon. The right kidney was 11.3 cm long. No mass or hydronephros is was seen. IMPRESSION: 1. Mild hepatomegaly and evidence of diffuse fatty infiltration. Hepatic size seems little diff erent than the 2012 study. 2. Borderline sized common bile duct which may or may not be significant. There are certainly n o dilated intrahepatic ducts. POS: HOME
== END 2017-04-23 08:26 | disposition home or self-care (01) ==
LOC: BURULT 08:25
PROVIDERS: ATTEND Family Medicine
DX: R10.11 Right upper quadrant pain (principal); K76.0 Fatty (change of) liver, not elsewhere classified
CPT/HCPCS: 76705

== ENCOUNTER 2017-06-03 09:52 | Outpatient (CLI) | payer OTHER ==
[2017-06-03 10:27] LABS: #Eosinphils 0.1 thou/uL (0.0-0.7); #Lymphocytes 1.7 thou/uL (1.20-3.40); #Monocytes 0.3 thou/uL (0.11-0.59); %Basophils 0.9 % (0.0-1.0); %Eosinophils 1.3 % (0.0-10.0); %Lymphocytes 33.5 % (21.0-51.0); %Monocytes 6.6 % (0.0-10.0); %Neutrophils 57.7 % (42.0-75.0); Hemoglobin 16.7 g/dL (14.0-18.0); Mean Corpuscular HGB CONC 35.5 g/dL (32.0-36.0); Mean Corpuscular Hemoglobin 30.6 pg (27.0-31.0); Mean Corpuscular Volume 86.1 fl (80.0-94.0); Mean Platelet Volume 5.8 fL (7.4-10.4); Platelet Count 177 thou/uL (130-400); RBC Distribution Width 11.3 % (11.5-14.5); Red Blood Cell (RBC) Count 5.45 mill/uL (4.70-6.10); White Blood Cell (WBC) Count 5.1 thou/uL (4.8-10.8)
[2017-06-03 10:41] LABS: ALT (SGPT) 36 U/L (8-55); AST (SGOT) 22 U/L (5-34); Albumin 4.5 g/dL (3.5-5.0); Alkaline Phosphatase 49 U/L (40-150); Anion Gap 14 mmol/L (10-20); BUN (Urea Nitrogen) 15 mg/dL (8.9-20.6); Bilirubin, Total 0.7 mg/dL (0.2-1.2); Calc. Creatinine Clearance 0 mL/min (70-130); Calcium 9.1 mg/dL (7.8-10.44); Carbon Dioxide 20 mmol/L (22-29); Cardiac Risk 3.1 (Less than 4.5); Chloride 111 mmol/L (98-107); Cholesterol 147 mg/dl (< 200 Desired); Estimated GFR-MDRD Greater than 90; Globulin 2.9 g/dL (2.4-3.5); Glucose 117 mg/dL (70-105); HDL Cholesterol 47 mg/dL (>60 Neg Risk); LDL Cholesterol, Calculated 88 mg/dL; Potassium 3.7 mmol/L (3.5-5.1); Protein, Total 7.4 g/dL (6.0-8.3); Sodium 141 mmol/L (136-145); Triglycerides 61 mg/dL (Less than 150)
== END 2017-06-03 09:53 | disposition home or self-care (01) ==
LOC: HPCALD 09:52
PROVIDERS: ATTEND Family Medicine
DX: Z13.6 Encounter for screening for cardiovascular disorders (principal); R03.0 Elevated blood-pressure reading, without diagnosis of hypertension
CPT/HCPCS: 36415; 80053; 80061; 84443; 85025

== ENCOUNTER 2018-06-30 19:11 | Emergency (ER) | payer OTHER ==
[2018-06-30] MEDS ORDERED: Fentanyl 100 MCG/2 ML VIAL ONE (19:18)
[2018-06-30] MEDS ORDERED: Morphine 4 MG/ML Carpuject ONE (19:49)
[2018-06-30] MEDS ORDERED: Ondansetron HCl/PF 4 MG/2 ML Vial ONE (20:06)
[2018-06-30] MEDS ORDERED: Ketamine 50 MG/ML VIAL ONE (20:43)
[2018-06-30] MEDS ORDERED: Midazolam HCl 2 mg/2 ml Vial ONE (20:43)
[2018-06-30] MEDS ORDERED: Adacel (T-DAP) 0.5 ML VIAL ONE (21:12)
--- NOTE | 2018-06-30 21:50 | RAD ---
RIGHT WRIST TWO VIEWS: 06/30/18 An impacted comminuted fracture of the distal radius is present with extension into the radiocarpal j oint. There is dorsal displacement of the fragments. There is also a displaced ulnar styloid process fracture. As best as I can tell, the carpal relationships seem normal. No gross metacarpal fractures were seen. IMPRESSION: Fractures of the distal radius and ulna as noted. POS: HOME
--- NOTE | 2018-06-30 21:57 | RAD ---
RIGHT WRIST: 06/30/18 The fractures have been reduced. There is much better alignment and improvement in angulation of the distal radial fracture. The ulnar styloid fracture is closer to anatomic. A splint has been applied. IMPRESSION: Good reduction of the fractures of the distal radius and ulna. POS: HOME
[2018-06-30] MEDS ORDERED: HYDROcodone/Acetaminophen 10/325 mg Tablet ONE (22:10)
--- NOTE | 2018-06-30 22:14 | CT ---
CT OF THE CERVICAL SPINE 06/30/[address] of the cervical spine was done following trauma. Axial slices were acquired, then coronal a nd sagittal reconstructions were done. No fracture, dislocation, or disc space narrowing was seen. the C1 to dens distance is normal and the soft tissues are normal in thickness. There is loss of the normal cervical lordosis which may be due to spasm. Findings by level follows: C1-C2: Unremarkable. C2-C3: No acute findings. C3-C4: Slight left foraminal narrowing. C4-C5: No acute findings. C5-C6: No acute findings. C6-C7: No acute findings. The left inferior facet of C6 is elongated an unusual anatomic variant. C7-T1: No acute findings. There is a small subcentimeter sclerotic lesion in the vertebral body of T1. It has a nonaggressive a ppearance. Lung apices are clear. The tip of the C7 spinous process is unfused, a common variant. IMPRESSION: Loss of cervical lordosis. No acute bony findings. POS: HOME
--- NOTE | 2018-07-01 07:41 | CT ---
PRELIMINARY REPORT/[facility]/EMERGENTY AFTER-HOURS PROCEDURE CT Head Without Intravenous Contrast CLINICAL HISTORY: The patient is a 48 years male; Injury or trauma; Fall; Patient HX: Fall from 10 foot ladder, no loc TECHNIQUE: Axial computed tomography images of the head/brain without intravenous contrast. All CT scans at this facility use at least one of these dose optimization techniques: automated exposure control; Ma and/ or kV adjustment per patient size (includes targeted exams where dose is matched to clinical indication); or iterative reconstruction. COMPARISON: No prior. [employer] CT cervical spine. FINDINGS: Brain: No intracranial hemorrhage. Normal roland-white differentiation with no evidence of edema, rosangela torial infarct, abnormal mass effect or midline shift. No extra-axial fluid collection. Ventricles: Unremarkable. No ventriculomegaly. Bones/joints: Unremarkable. No acute fracture. Soft tissues: Unremarkable. Sinuses: Unremarkable as visualized. No acute sinusitis. Mastoid air cells: Unremarkable as visualized. No mastoid effusion. IMPRESSION: 1. No acute findings. Thank you for allowing us to participate in the care of your patient. Dictated and Authenticated by: Ricky Evans MD 06/30/2018 7:55 PM Central Time ([place] & [place]) CT OF THE BRAIN WITHOUT CONTRAST: 06/30/18 Comparison is made with a 04/02/11 study. The ventricles are normal in size with no shift. No intracranial bleeding or extra-axial hematoma was seen. There is no sign of mass, edema, or stroke. The calvarium appears intact. The sphenoid sinus i s clear, as are the mastoid air cells. IMPRESSION: No acute intracranial findings. Report in agreement with preliminary reading by Walker. POS: HOME
== END 2018-06-30 22:13 | disposition home or self-care (01) ==
LOC: BURERS 19:11
DX: S52.571A Other intraarticular fracture of lower end of right radius, initial encounter for closed fracture (principal); S52.611A Displaced fracture of right ulna styloid process, initial encounter for closed fracture; S05.41XA Penetrating wound of orbit with or without foreign body, right eye, initial encounter; Z23 Encounter for immunization; K21.9 Gastro-esophageal reflux disease without esophagitis; W11.XXXA Fall on and from ladder, initial encounter
CPT/HCPCS: 25605; 70450; 72125; 90471; 90715; 96361; 96374; 96375; 99152; 99153; J2250; J2270; J2405; J3010